=== PATIENT | female | born 1980 | race Caucasian/White ===

== ENCOUNTER 2019-05-18 10:26 | Emergency (ER) | payer OTHER, SELFPAY ==
[2019-05-18 10:32] VITALS: BP 162/72; PULSE 90; RESP 14; TEMP 36.6; O2SAT 96
--- NOTE | 2019-05-18 10:48 | W.ED.GENAD ---
Discharge Plan Disposition Patient Disposition: HOME Condition: Stable Discharge Details Chief Complaint: Nk/Back Pain Clinical Impression: Back pain, thoracic Primary Care Provider: Catarino An ED Provider: Terry Longoria Home Meds and New Rx's Prescriptions: New methocarbamol 500 mg tablet 500 mg PO Q6H PRN (Reason: Back pain or spasm) Qty: 14 RF: 0 prednisone 20 mg tablet 40 mg PO DAILY 5 Days Qty: 10 RF: 0 Continued Symbicort 80-4.5 mcg/actuation HFA aerosol inhaler 2 puff Inhalation BID 30 Days Qty: 1 RF: 11 albuterol sulfate [ProAir HFA] 90 mcg/actuation HFA aerosol inhaler 2 puff Inhalation Q4H PRN 30 Days Qty: 1 RF: 11 biotin 1 MG capsule 1 mg PO DAILY RF: 0 cetirizine [Zyrtec] 10 MG tablet 10 mg PO PRN RF: 0 Discharge Instructions Instructions: Back Pain (ED) Additional Instructions: May use ibuprofen 800 mg every 8 hours, next dose this evening. May continue Lidoderm patch, applying for 12 hours and then remove for 12. Please take prednisone as prescribed. May use methocarbamol as needed, for muscular pain and spasm. May apply ice and/or heat to area to reduce discomfort. Please follow-up with physical therapy as prescribed. Return to the emerge part for worsening pain, incontinence, development of lower extremity weakness or numbness, or any other acute concern. Stand Alone Forms: Physical Therapy Referral Medical Decision Making 38-year-old female bent over this morning to pick stepping off a floor and felt a pop in her back followed by slow tightening. She did not lose bowel or bladder continence, there is no radiation of the pain, it is improved with rest and exacerbated by movement. Her vital signs are reassuring, her exam is consistent with paraspinous muscular spasm. Discussed with her that we cannot rule out underlying disc bulge. We will treat with Lidoderm patch, NSAIDs, course of prednisone for its anti-inflammatory properties, PRN use of methocarbamol and referral to physical therapy. She understands plan of outpatient care as well as indications for return to the ED for worsening, weakness or numbness, incontinence. HPI General Mode of arrival: ambulatory. Date/Time Provider Initiated Documentation: 05/18/19 10:34. Limitations to Documentation: no limitations. Information obtained by: patient. History of Present Illness 38 year old F presents to the emergency department with the chief complaint of Thoracic back strain, described as moderate and similar to prior episodes, Quality is described as dull and constant, and is localized to the back. Patient reports no radiation. Patient started experiencing this hour(s) and it has been constant. Rest improves symptom(s), Movement worsens symptoms . Patient notes no other symptoms. and other (No numbness or tingling, no change to bowel or bladder habits, ambulatory); denies weakness. Patient did receive the following treatments prior to arrival, none Related Data Home Medications Medication Instructions Recorded Confirmed cetirizine [Zyrtec] 10 mg PO PRN 11/04/13 05/18/19 biotin 1 mg PO DAILY 01/12/16 05/18/19 albuterol sulfate 90 mcg/actuation 2 puff INHALATION Q4H PRN 30 Days 01/30/19 05/18/19 aerosol inhaler #1 inhaler budesonide-formoterol HFA 80 2 puff INHALATION BID 30 Days #1 01/30/19 05/18/19 mcg-4.5 mcg/actuation aerosol inhaler inhaler methocarbamol 500 mg PO Q6H PRN #14 tab 05/18/19 prednisone 40 mg PO DAILY 5 Days #10 tab 05/18/19 Previous Rx's Medication Instructions Recorded albuterol sulfate 90 mcg/actuation 2 puff INHALATION Q4H PRN 30 Days 01/30/19 aerosol inhaler #1 inhaler budesonide-formoterol HFA 80 2 puff INHALATION BID 30 Days #1 01/30/19 mcg-4.5 mcg/actuation aerosol inhaler inhaler methocarbamol 500 mg PO Q6H PRN #14 tab 05/18/19 prednisone 40 mg PO DAILY 5 Days #10 tab 05/18/19 Allergies Allergy/AdvReac Type Severity Reaction Status Date / Time amoxicillin trihydrate Allergy Mild hives Unverified 05/18/19 10:37 [From Augmentin] potassium clavulanate Allergy Mild hives Unverified 05/18/19 10:37 [From Augmentin] General Stated Complaint: Nk/Back Pain JASMINE: 4 Review of Systems Narrative: No incontinence. No anesthesia. 6 systems reviewed and otherwise negative [facility] Surgical History Ligation of fallopian tube Family History Mother No problems noted. Father No problems noted. Sister No problems noted. Brother Mental disorder Depression Grandfather Personal history of malignant neoplasm Prostate Grandfather No problems noted. Grandmother Personal history of malignant neoplasm Breast Grandmother No problems noted. Daughter No problems noted. Daughter No problems noted. Maternal Aunt Personal history of malignant neoplasm Breast Social History Smoking/Tobacco Use Status: Current every day Drug use: Never Do you feel safe in your relationship?: Yes Exam Narrative Exam Narrative: GEN: awake, alert, oriented 3. Pleasant, well groomed, interactive. HEAD: Normocephalic, atraumatic ENT: Mucous membranes moist, oropharynx unremarkable, External ear exam unremarkable EYES: PERRL, EOMI NECK: Full ROM, no BATSHEVA, no menigismus CHEST/RESP: Nontender, clear to auscultation bilateral, no wheeze/rhonchi/rales CARDIOVASCULAR: RRR, no murmur, rub lj. 2+ Rad pulse bilateral Back: Lower thoracic tenderness and muscular spasm in the paraspinous muscles bilaterally. No midline point tenderness. ABDOMEN: Soft, nontender, no mass. +Bowel sounds EXT: Full ROM, no edema, no rash. Motor 5 out of 5 bilaterally. Reflexes 1+ at the patella and ankle. Sensation intact including saddle distribution. Neuro: Grossly normal neurologic exam, conversant, interactive. Psych: Speech fluent, thoughts congruent, affect normal Course Vital Signs Vital signs: Vital Signs Temperature 36.6 C 05/18/19 10:32 Pulse 90 05/18/19 10:32 Respiratory Rate 14 05/18/19 10:32 Blood Pressure 162/72 H 05/18/19 10:32 Pulse Oximetry 96 05/18/19 10:32 Temperature 36.6 C 05/18/19 10:32 Temperature Source Skin 05/18/19 10:32 Pulse 90 05/18/19 10:32 Respiratory Rate 14 05/18/19 10:32 Respiratory Effort Short of Breath 05/18/19 10:41 Blood Pressure 162/72 H 05/18/19 10:32 Blood Pressure Position Sitting 05/18/19 10:32 Pulse Oximetry 96 05/18/19 10:32 Oxygen Delivery Method Room Air 05/18/19 10:32 Oxygen Flow Rate 0 05/18/19 10:32 Pain Level 6 05/18/19 10:32
[2019-05-18] MEDS: Lidocaine 5% Patch 1 PATCH TP (10:52)
[2019-05-18] MEDS: Ibuprofen 800 MG TAB PO (10:53)
== END 2019-05-18 11:03 | disposition home or self-care (01) ==
PROVIDERS: Emergency Provider Emergency Medicine; PCP Family Medicine
DX: M54.6 Pain in thoracic spine (principal); M62.830 Muscle spasm of back; X50.9XXA Other and unspecified overexertion or strenuous movements or postures, initial encounter
CPT/HCPCS: 99283

== ENCOUNTER 2019-06-05 15:57 | Emergency (ER) | payer OTHER, SELFPAY ==
[2019-06-05] VITALS (11 sets, daily range): BP systolic 136–184; BP diastolic 89–122; PULSE 60–108; RESP 8–25; TEMP 36.6; O2SAT 94–97
--- NOTE | 2019-06-05 16:04 | W.ED.GENAD ---
Discharge Plan Disposition Patient Disposition: HOME Condition: Fair Discharge Details Chief Complaint: RespSymp Clinical Impression: Viral illness Primary Care Provider: Catarino An ED Provider: Ella Crane Home Meds and New Rx's Prescriptions: New oseltamivir [Tamiflu] 75 mg capsule 75 mg PO BID Qty: 8 RF: 0 benzonatate [Tessalon Perles] 100 mg capsule 100 mg PO TID PRN (Reason: cough) Qty: 14 RF: 0 ipratropium-albuterol 0.5 mg-3 mg(2.5 mg base)/3 mL solution for nebulization 3 ml IH Q4H PRN (Reason: shortness of breath or wheezing) Qty: 15 RF: 0 Continued Symbicort 80-4.5 mcg/actuation HFA aerosol inhaler 2 puff Inhalation BID 30 Days Qty: 1 RF: 11 albuterol sulfate [ProAir HFA] 90 mcg/actuation HFA aerosol inhaler 2 puff Inhalation Q4H PRN 30 Days Qty: 1 RF: 11 biotin 1 MG capsule 1 mg PO DAILY RF: 0 cetirizine [Zyrtec] 10 MG tablet 10 mg PO PRN RF: 0 methocarbamol 500 mg tablet 500 mg PO Q6H PRN (Reason: Back pain or spasm) Qty: 14 RF: 0 Discharge Instructions Instructions: Benzonatate (By mouth), Oseltamivir (By mouth), Viral Syndrome (ED) Additional Instructions: Your rapid flu testing was negative today. However, I remain very concerned that you have influenza. More formal testing consent state. We will contact you if this is positive. Please encourage hydration. You may use Tylenol and/or ibuprofen as needed for discomfort. Please take the Tamiflu as prescribed. You may use the Tessalon Perles as prescribed to help with cough. Try sitting in a more upright position when sleeping. May continue with your medications as prescribed. To help with the shortness of breath and cough, may use the nebulizer as prescribed to help with shortness of breath. If you develop increased difficulty breathing, shortness of breath, inability stay hydrated or new/worsening symptoms please seek care urgently once again. Otherwise, I would like for you to follow-up with your primary care in 2 days for reevaluation. Referrals: Catarino An [Primary Care Provider] - Discharge Data Discharge Date/Time-TO BE ENTERED AT DEPARTURE: 06/05/19 22:00 Medical Decision Making <ADIN Mary - Last Filed: 06/09/19 15:49> Patient 38-year-old female presenting today with chief complaint of shortness of breath, cough, body aches and congestion. She reports this came on suddenly yesterday. Pleuritic pain with cough. Patient has history of asthma, depression, GERD. She reports she is status post tubal ligation. No recent travel. States she is constant shortness of breath but this is made worse with coughing. Denies any GI upset. No change in urinary habits. On exam, patient appears uncomfortable. She is tachypneic and tachycardic at time of exam. Initially, patient was noted to be hypertensive at 184/122. Will ask nursing staff to recheck this. Lungs are clear. Rapid onset of her symptoms, I am concerned she may have influenza. We will perform a rapid flu testing and obtain chest x-ray given patient shortness of breath. Will give nebulizer help with symptomatic management. FINDINGS: Lungs: Unremarkable. No consolidation. Pleural space: Unremarkable. No pleural effusion. No pneumothorax. Heart/Mediastinum: Unremarkable. No cardiomegaly. Bones/joints: Unremarkable. IMPRESSION: No acute findings Rapid flu negative. Despite this, I still remain concerned for influenza given patients history and exam. Reexamined the patient and discussed the results. She does feel improved after a nebulizer. However, patient remains tachycardic in the 120s. Her oxygen to maintain at 97%. She is notably tachypneic and remains hypertensive although this is improved to 160/100. Feel that hydration, laboratory evaluation and treatment for presumed influenza is appropriate. Will order secondary influenza testing. Labs reviewed. Significant for elevated d-dimer 569. I discussed this with the patient. Given her tachycardia, tachypnea and pleuritic pain, I feel that CT to rule out pulmonary embolism is appropriate. Labs otherwise without significant acute abnormality. Her AST and ALT were noted to be mildly elevated and discussed this with the patient, advised that she follow-up with primary care regarding this. FINDINGS: Pulmonary arteries: Normal. No pulmonary emboli. Aorta: Unremarkable. No aortic aneurysm. No aortic dissection. Lungs: Unremarkable. No consolidation. No masses. Pleural space: Unremarkable. No pneumothorax. No pleural effusion. Heart: Unremarkable. No cardiomegaly. No pericardial effusion. Liver: There is fatty infiltration of the liver without suspicious focal abnormality. Some areas of heterogeneity seen with features suggesting focal fatty sparing. Lymph nodes: Unremarkable. No enlarged lymph nodes. Bones/joints: Unremarkable. No acute fracture. Soft tissues: Unremarkable. IMPRESSION: 1. No evidence of pulmonary arterial embolism. Normal appearance of thoracic aorta. 2. No pericardial effusion. 3. No acute lung infiltrates or edema. No pleural effusions. 4. Fatty liver infiltration of a severe nature. Discussed these findings with the patient. Again, her history and exam is most consistent with influenza despite her negative rapid. A send out influenza testing has been ordered. Plan to begin the patient on Tamiflu. Also discharged home with Kaley Koch. Encourage hydration. We discussed methods to help with symptomatic management. She is feeling improved at the time of discharge. Advise close follow-up with primary care. Return precautions discussed. We will contact her with any positive results. Patient was given masks and instructions on hand hygiene particular given her sick at home. All of her questions and concerns were addressed and she is in agreement this plan. <Brenden Garcia DO - Last Filed: 06/05/19 19:22> EKG 17: 52 Rate 107, intervals normal, sinus tachycardia, RSR in V1, no evidence today, no evidence of complete block. No significant ST elevations or depressions, there is an inverted T wave in lead III. HPI <ADIN Mary - Last Filed: 06/09/19 15:49> General Mode of arrival: ambulatory. Date/Time Provider Initiated Documentation: 06/05/19 16:04. Limitations to Documentation: no limitations. Information obtained by: patient, family and RN notes reviewed. HPI Narrative: Patient is a 38-year-old female presenting today with chief complaint of cough, body aches, nasal congestion. She reports this began yesterday with a sudden onset. Denies any recent travel. 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 Reports fevers and chills. Generalized body aches. No known sick contacts but patient reports that her is chronically ill and she is concerned about transmitting any illness. She rates her general body aches a 7 out of 10. Is not taking anything for her discomfort. Related Data Home Medications Medication Instructions Recorded Confirmed cetirizine [Zyrtec] 10 mg PO PRN 11/04/13 06/07/19 biotin 1 mg PO DAILY 01/12/16 06/07/19 albuterol sulfate 90 mcg/actuation 2 puff INHALATION Q4H PRN 30 Days 01/30/19 06/07/19 aerosol inhaler #1 inhaler budesonide-formoterol HFA 80 2 puff INHALATION BID 30 Days #1 01/30/19 06/07/19 mcg-4.5 mcg/actuation aerosol inhaler inhaler methocarbamol 500 mg PO Q6H PRN #14 tab 05/18/19 06/07/19 benzonatate [Tessalon Perles] 100 mg PO TID PRN #14 cap 06/05/19 06/07/19 ipratropium-albuterol 3 ml IH Q4H PRN #15 ml 06/05/19 06/07/19 oseltamivir [Tamiflu] 75 mg PO BID #8 cap 06/05/19 06/07/19 Previous Rx's Medication Instructions Recorded albuterol sulfate 90 mcg/actuation 2 puff INHALATION Q4H PRN 30 Days 01/30/19 aerosol inhaler #1 inhaler budesonide-formoterol HFA 80 2 puff INHALATION BID 30 Days #1 01/30/19 mcg-4.5 mcg/actuation aerosol inhaler inhaler methocarbamol 500 mg PO Q6H PRN #14 tab 05/18/19 benzonatate [Tessalon Perles] 100 mg PO TID PRN #14 cap 06/05/19 ipratropium-albuterol 3 ml IH Q4H PRN #15 ml 06/05/19 oseltamivir [Tamiflu] 75 mg PO BID #8 cap 06/05/19 Allergies Allergy/AdvReac Type Severity Reaction Status Date / Time amoxicillin trihydrate Allergy Mild hives Unverified 06/07/19 11:34 [From Augmentin] potassium clavulanate Allergy Mild hives Unverified 06/07/19 11:34 [From Augmentin] General Stated Complaint: RespSymp JASMINE: 3 Review of Systems <ADIN Mary - Last Filed: 06/09/19 15:49> Constitutional Constitutional: Reports as per HPI, Reports chills, Reports fatigue, Reports fever(s), Denies headache(s), Reports malaise and Reports poor appetite Eyes Eyes: Reports as per HPI, Denies eye discharge and Denies irritation ENT Ears, Nose, Mouth, and Throat: Reports as per HPI and Denies headache(s) Cardiovascular Cardiovascular: Reports as per HPI, Denies chest pain and Denies dyspnea Respiratory Respiratory: Reports as per HPI, Reports chest congestion, Reports cough, Denies hemoptysis, Denies excessive phlegm production, Denies pain on inspiration, Reports pain with cough, Denies dyspnea and Denies wheezing Gastrointestinal Gastrointestinal: Reports as per HPI, Denies abdominal pain, Denies change in bowel habits, Denies nausea and Denies vomiting Musculoskeletal Musculoskeletal: Denies abnormal gait, Reports myalgias and Reports arthralgias Integumentary/Breasts Skin/Breast: Reports as per HPI and Denies rash Neurologic Neurologic: Reports as per HPI, Denies abnormal gait and Denies headache(s) Endocrine Endocrine: Reports fatigue Allergic/Immunologic Allergic/Immunologic: Denies wheezing PFSH <ADIN Mary - Last Filed: 06/09/19 15:49> Surgical History Ligation of fallopian tube Social History Smoking/Tobacco Use Status: Current every day Tobacco Type: cigarettes Alcohol Intake: current Alcohol Intake frequency: a few times a month Drug use: Never Substance use type: does not use Do you feel safe at home: Yes Do you feel safe in your relationship?: Yes Exam <ADIN Mary - Last Filed: 06/09/19 15:49> Const General: cooperative, not healthy appearing (appears fatigued and uncomfortable), no acute distress, well developed and well groomed Nutritional Appearance: well nourished and obese Orientation: alert and awake [facility] Head: normal to inspection, normocephalic and atraumatic Ears: hearing grossly normal bilaterally, external ears normal and TM's normal bilaterally General nose exam: external nose normal and nares normal Face and sinus: normal facial exam, sinuses nontender and face symmetric Mouth: oral mucosae normal, lip normal, tongue normal, oropharynx normal and moist mucous membranes Teeth and gingiva: dentition normal Throat: posterior oropharynx normal, tonsils normal and uvula midline Eyes General: appearance normal, both eyes and all related structures Neck Neck: normal visual inspection, full ROM, no lymphadenopathy and no meningeal signs Resp Effort & Inspection: normal respiratory effort, able to speak in complete sentences and no respiratory distress Auscultation: clear to auscultation bilaterally, no rales, no rhonchi and no wheezes Cardio Rate: regular rate Rhythm: regular rhythm Heart Sounds: S1 normal and S2 normal GI Inspection: normal to inspection, non-distended and obesity Palpation: soft, no hepatosplenomegaly, no guarding, not rigid and nontender Skin General skin exam: no rashes or lesions noted Neuro General: alert and awake Cognition: normal cognition Speech: speech normal Gait: normal gait Extrem General: normal to inspection, normal capillary refill, no pedal edema, no calf tenderness and normal gait Psych Appearance: grossly normal and well kempt Mental Status: mental status grossly normal Speech and Movement: speech and movement normal Course <ADIN Mary - Last Filed: 06/09/19 15:49> Vital Signs Vital signs: Vital Signs Temperature 36.6 C 06/05/19 16:01 Pulse 60 06/05/19 16:01 Respiratory Rate 20 06/05/19 16:01 Pulse Oximetry 95 06/05/19 16:01 Temperature 36.6 C 06/05/19 16:01 Temperature Source Temporal Artery Scan 06/05/19 16:01 Pulse 60 06/05/19 16:01 Respiratory Rate 20 06/05/19 16:01 Blood Pressure Position Sitting 06/05/19 16:01 Pulse Oximetry 95 06/05/19 16:01 Oxygen Delivery Method Room Air 06/05/19 16:01 Oxygen Flow Rate 0 06/05/19 16:01 Pain Level 7 06/05/19 16:01
[2019-06-05] MEDS: Albuterol/Ipratropium 3 ML UPD VIAL (16:15)
--- NOTE | 2019-06-05 16:33 | DI.RAD_ITS ---
EXAM: XR CHEST 2V PA LATERAL INDICATION: cough. COMPARISON: ABD FLAT UPRIGHT PA CHEST from 11/04/2013 TECHNIQUE: 2D digital imaging was performed. FINDINGS: The heart size is within normal limits. The aorta is mildly tortuous. Lungs appear clear. No infil trate or effusion is seen. IMPRESSION: No acute abnormality.
--- NOTE | 2019-06-05 16:41 | DI.VRAD_ITS ---
PROCEDURE INFORMATION: Exam: XR Chest, 2 Views Exam date and time: 06/05/2019 4:35 PM Age: 38 years old Clinical indication: Patient HX: Nonproductive cough, worsening 1.5 days TECHNIQUE: Imaging protocol: XR of the chest Views: 2 views. COMPARISON: CR ABD FLAT UPRIGHT PA CHEST 11/04/2013 7:58 PM FINDINGS: Lungs: Unremarkable. No consolidation. Pleural space: Unremarkable. No pleural effusion. No pneumothorax. Heart/Mediastinum: Unremarkable. No cardiomegaly. Bones/joints: Unremarkable. IMPRESSION: No acute findings. Dictated and Authenticated by: Eileen Benavidez MD. Ordering:CARLOS Jaramillo MD
[2019-06-05] MEDS: Acetaminophen 500 MG TAB 1000 MG PO (17:36)
[2019-06-05] MEDS: Normal Saline 1,000 ML 1000 ML IV (17:37)
[2019-06-05 17:40] LABS: Abs Immature Grans 0.05 k/cumm (0.0-0.09); Absolute Basophil Count 0.03 k/cumm (0.0-0.2); Absolute Lymphocyte Count 0.63 k/cumm (1.2-3.4); Absolute Monocyte Count 0.39 k/cumm (0.11-0.7); Absolute Neutrophil Count 5.74 k/cumm (1.2-6.7); Basophils % 0.4; HCT 42.9 % (36.0-46.0); HGB 14.7 g/dL (12.0-15.5); Immature Grans % 0.7; Lymphocytes % 9.2; Mean Corp. HGB Concentration 34.3 g/dL (32.0-36.0); Mean Corpuscular Hemoglobin 32.5 pg (27.0-33.0); Mean Corpuscular Volume 94.7 fL (80-95); Mean Platelet Volume 10.3 fL (8.0-11.0); Monocytes % 5.7; Platelet Count 163 x1000/uL (130-400); RBC 4.53 m/cumm (4.00-5.20); RBC Distribution Width 12.6 % (11.7-14.6); White Blood Cell Count 6.84 k/cumm (4.4-10.8)
[2019-06-05 18:07] LABS: ALT 74 U/L (14-59); AST 67 U/L (15-37); Albumin 3.6 g/dL (3.4-5.0); Alkaline Phosphatase 78 U/L (46-116); Anion Gap 6.3 mmol/L (3-11); BUN 11 mg/dL (7-18); Bilirubin, Total 0.4 mg/dL (0.2-1.0); CO2 28.7 mmol/L (21.0-32.0); CREATININE 0.77 mg/dL (0.55-1.02); Chloride 105 mmol/L (98-107); Glucose 116 mg/dL (74-106); Potassium 3.9 mmol/L (3.5-5.1); Sodium 140 mmol/L (136-145); Total Protein 7.6 g/dL (6.4-8.2)
[2019-06-05 18:10] LABS: D-Dimer 569 ng/mlFEU (<500)
[2019-06-05 18:16] LABS: Troponin I < 0.05 ng/Ml (<0.06)
--- NOTE | 2019-06-05 19:04 | DI.CT_ITS ---
EXAM: CT CHEST PE CTA CLINICAL HISTORY: elevated d-dimer, SOB, tachy, COUGH, SOB TECHNIQUE: Post IV contrast, 100 cc's of Omnipaque 350 according to the pulmonary embolism protocol. Axial CT angiography was performed with multi-slice acquisition and multi-planar and/or 3D reconstruc tions. COMPARISON: No exams were available for comparison FINDINGS: There is no evidence of pulmonary emboli or aortic dissection. No pleural or pericardial effusions are seen. There is no evidence of infiltrates. No pneumothorax, rib or spine fracture is seen. The liver is enlarged and shows fatty infiltration. IMPRESSION: No acute abnormality.
[2019-06-05] MEDS: Omnipaque 350 MG/ML 100 ML BTL IJ (19:08)
--- NOTE | 2019-06-05 19:27 | DI.VRAD_ITS ---
PROCEDURE INFORMATION: Exam: CT Angiography Chest With Contrast Exam date and time: 06/05/2019 7:02 PM Age: 38 years old Clinical indication: Cough and shortness of breath; Patient HX: SOB, tachy, elevated d dimer TECHNIQUE: Imaging protocol: Computed tomographic angiography of the chest with intravenous contrast. 3D rendering: MIP and/or 3D reconstructed images were created by the technologist. Radiation optimization: All CT scans at this facility use at least one of these dose optimization techniques: automated exposure control; mA and/or kV adjustment per patient size (includes targeted exams where dose is matched to clinical indication); or iterative reconstruction. Contrast material: OMNIPAQUE 350; Contrast volume: 100 ml; Contrast route: IV RAC; COMPARISON: CR XR CHEST 2V PA LATERAL 06/05/2019 4:33 PM FINDINGS: Pulmonary arteries: Normal. No pulmonary emboli. Aorta: Unremarkable. No aortic aneurysm. No aortic dissection. Lungs: Unremarkable. No consolidation. No masses. Pleural space: Unremarkable. No pneumothorax. No pleural effusion. Heart: Unremarkable. No cardiomegaly. No pericardial effusion. Liver: There is fatty infiltration of the liver without suspicious focal abnormality. Some areas of heterogeneity seen with features suggesting focal fatty sparing. Lymph nodes: Unremarkable. No enlarged lymph nodes. Bones/joints: Unremarkable. No acute fracture. Soft tissues: Unremarkable. IMPRESSION: 1. No evidence of pulmonary arterial embolism. Normal appearance of thoracic aorta. 2. No pericardial effusion. 3. No acute lung infiltrates or edema. No pleural effusions. 4. Fatty liver infiltration of a severe nature. Dictated and Authenticated by: Ata Arnold MD. Ordering:CARLOS Jaramillo MD
[2019-06-05] MEDS: Oseltamivir 75 MG CAP 150 MG PO (19:44)
[2019-06-05] MEDS: Benzonatate 100 MG CAP 300 MG PO (19:44)
[2019-06-05] MEDS: Albuterol/Ipratropium 3 ML UPD VIAL UPD (19:54)
[2019-06-07 10:38] LABS: Influenza B RNA Result Negative (Negative); RSV RNA Result Negative (Negative)
[2019-06-07 11:50] LABS: Influenza A RNA Result Positive (Negative)
== END 2019-06-05 22:00 | disposition home or self-care (01) ==
PROVIDERS: Emergency Provider Physician Assistant; PCP Family Medicine
DX: J10.1 Influenza due to other identified influenza virus with other respiratory manifestations (principal); R06.02 Shortness of breath; R05 Cough; R00.0 Tachycardia, unspecified; R03.0 Elevated blood-pressure reading, without diagnosis of hypertension
CPT/HCPCS: 36415; 71275; 80053; 87449; 87631; 93005; 94640; 96360; 99285; 71046; 84484; 85025; 85379; 93010; J3490; J7620

== ENCOUNTER 2019-12-17 01:47 | Outpatient (CLI) | payer OTHER, SELFPAY ==
--- NOTE | 2019-12-17 09:00 | DI.MAMMO_ITS ---
EXAM: MG MAMMO SCREENING CLINICAL HISTORY: screening, Z12.39 TECHNIQUE: Bilateral full field digital CC and MLO mammographic images were obtained with 3D tomosyn thesis and utilizing computer aided detection (CAD). COMPARISON: No priors for comparison. FINDINGS: Masses/Architectural Distortion: There is a well-circumscribed nodule in the 12 o'clock position of t he left breast. There is a question of a lucent notch anteriorly and this may reflect a intraparench ymal lymph node. Spot compression view and ultrasound requested for further evaluation. Microcalcifications: No suspicious pleomorphic-type are seen. Skin Thickening/Nipple Retraction: None. IMPRESSION: 1. Well-circumscribed nodule at the 12 o'clock position of the left breast. 2. Spot compression view and ultrasound are requested for further evaluation. BI-RADS Category 0 - Assessment Incomplete: Need additional imaging evaluation Breast Density - Category B - Scattered areas of fibroglandular density A negative radiographic report should not delay biopsy if a dominant or clinically suspicious mass is present. Up to ten percent of cancers are not identified on mammography. A negative report may reinforce clinical impression. Adenosis and dense breasts may obscure an underlying neoplasm. False positive reports average 6 to 10%. Patient will receive a letter notifying them of these results.
== END 2019-12-17 02:07 ==
PROVIDERS: PCP Nurse Practitioner; Visit Provider Nurse Practitioner
DX: Z12.31 Encounter for screening mammogram for malignant neoplasm of breast (principal); R92.8 Other abnormal and inconclusive findings on diagnostic imaging of breast
CPT/HCPCS: 77063; 77067

== ENCOUNTER 2019-12-19 02:20 | Outpatient (CLI) | payer OTHER, SELFPAY ==
--- NOTE | 2019-12-19 | DI.US_ITS ---
EXAM: MG MAMMO SCREEN CALL BACK UNI CLINICAL HISTORY: WELL CIRCUMSCRIBED NODULE IN 12 O'CLOCK POSITION LT BREAST. TECHNIQUE: Craniocaudal and mediolateral oblique Full Field Digital Mammography views of the left br east with Computer Aided Diagnosis followed by Tomosynthesis and left breast ultrasound. COMPARISON: Comparison with priors. FINDINGS: Mammography/Tomosynthesis: Masses/Architectural Distortion: Well-circumscribed nodule in the left breast appears unchanged. No associated microcalcifications or architectural distortion is noted. Microcalcifictions: No suspicious pleomorphic-type are seen. Skin Thickening/Nipple Retraction: None. Left breast US: Echotexture: Normal appearance of the glandular tissue. Shadowing: No suspicious foci. Cyst: None. Solid lesions: Well-circumscribed radially oriented hypoechoic avascular lesion at the 11 o'clock pos ition of the left breast 11 cm from the nipple. This corresponds to the mammographic abnormality. T his may represent an intraparenchymal lymph node or small fibroadenoma. Ductal dilation: None. IMPRESSION: 1. No evidence of malignancy is noted. 2. Six-month follow-up left mammogram recommended for re-evaluation. 3. The findings were discussed with the patient on the date of the examination. BI-RADS Category 3 - 6 month - Probably Benign Finding: Recommend follow-up mammography in 6 months Breast Density - Category B - Scattered areas of fibroglandular density A negative radiographic report should not delay biopsy if a dominant or clinically suspicious mass is present. Up to ten percent of cancers are not identified on mammography. A negative report may reinforce clinical impression. Adenosis and dense breasts may obscure an underlying neoplasm. False positive reports average 6 to 10%. Patient will receive a letter notifying them of these results.
== END 2019-12-19 02:40 ==
PROVIDERS: PCP Nurse Practitioner; Visit Provider Nurse Practitioner
DX: Z12.31 Encounter for screening mammogram for malignant neoplasm of breast (principal); R92.8 Other abnormal and inconclusive findings on diagnostic imaging of breast; N63.22 Unspecified lump in the left breast, upper inner quadrant
CPT/HCPCS: 76642; 77063; 77067

== ENCOUNTER 2020-09-09 13:11 | Outpatient (REF) | payer OTHER, SELFPAY ==
[2020-09-09 13:57] LABS: ALT 85 U/L (14-59); AST 70 U/L (15-37); Albumin 3.4 g/dL (3.4-5.0); Alkaline Phosphatase 87 U/L (46-116); BUN 9 mg/dL (7-18); Bilirubin, Total 0.4 mg/dL (0.2-1.0); CREATININE 0.8 mg/dL (0.55-1.02); Calcium 8.6 mg/dL (8.5-10.1); Calculated LDL 154 mg/dL (<100); Chloride 100 mmol/L (98-107); Cholesterol 236 mg/dL (<200); Glucose 168 mg/dL (74-106); HDL Cholesterol 36 mg/dL (40-60); Hemoglobin A1C 6.4 % (<5.7); Potassium 3.3 mmol/L (3.5-5.1); Sodium 141 mmol/L (136-145); Total Protein 7.1 g/dL (6.4-8.2); Triglyceride 232 mg/dL (<150)
== END 2020-09-09 13:12 | disposition home or self-care (01) ==
LOC: LBN 13:11
PROVIDERS: PCP Nurse Practitioner; Visit Provider Nurse Practitioner
DX: K76.0 Fatty (change of) liver, not elsewhere classified (principal); Z13.1 Encounter for screening for diabetes mellitus; Z13.6 Encounter for screening for cardiovascular disorders
CPT/HCPCS: 80053; 80061; 83036

== ENCOUNTER 2020-12-03 16:13 | Outpatient (REF) | payer OTHER, SELFPAY ==
[2020-12-03 18:54] LABS: Abs Immature Grans 0.02 10^3/uL (0.0-0.06); Absolute Basophil Count 0.08 10^3/uL (0.0-0.2); Absolute Eosinophil Count 0.45 10^3/uL (0.0-0.7); Absolute Lymphocyte Count 2.21 10^3/uL (1.2-3.4); Absolute Neutrophil Count 6.35 10^3/uL (1.2-6.7); Basophils % 0.8; Eosinophils % 4.7; HCT 41.6 % (36.0-46.0); HGB 13.6 g/dL (11.2-15.7); Immature Grans % 0.2; MCH 30.7 pg (27.0-33.0); MCHC 32.7 % (32.0-36.0); MCV 93.9 fL (80-95); Monocytes % 5.2; Neutrophils % 66.1; Nucleated RBC 0 %; Platelet Count 192 10^3/uL (130-400); RBC 4.43 10^6/uL (3.93-5.22); RDW 12.8 % (11.7-14.6); RDW-SD 44.2 fL; WBC 9.61 10^3/uL (4.4-10.8)
[2020-12-03 19:27] LABS: ALT 64 U/L (14-59); AST 53 U/L (15-37); Albumin 3.4 g/dL (3.4-5.0); Alkaline Phosphatase 80 U/L (46-116); Anion Gap 6.9 mmol/L (3-11); BUN 12 mg/dL (7-18); Bilirubin, Total 0.7 mg/dL (0.2-1.0); CO2 31.1 mmol/L (21.0-32.0); CREATININE 1.1 mg/dL (0.55-1.02); Calcium 8.9 mg/dL (8.5-10.1); Chloride 103 mmol/L (98-107); Estimated GFR 54.47 (mL/min/1.73m2); Glucose 124 mg/dL (74-106); Potassium 3.9 mmol/L (3.5-5.1); Sodium 141 mmol/L (136-145); Total Protein 6.9 g/dL (6.4-8.2)
[2020-12-03 19:36] LABS: Amylase 45 U/L (25-115); Lipase 95 U/L (73-393)
== END 2020-12-03 16:14 | disposition home or self-care (01) ==
LOC: NCHCN 16:13
PROVIDERS: PCP Nurse Practitioner; Visit Provider Nurse Practitioner Family
DX: R10.9 Unspecified abdominal pain (principal); N39.0 Urinary tract infection, site not specified
CPT/HCPCS: 80053; 83690; 82150; 85025; 87086

== ENCOUNTER 2021-02-28 18:57 | Outpatient (REF) | payer OTHER, SELFPAY ==
[2021-03-01 16:23] LABS: COVID-19 RT-PCR UVMMC Result Negative (Negative)
== END 2021-03-01 18:58 | disposition home or self-care (01) ==
LOC: LBN 18:57
PROVIDERS: PCP Nurse Practitioner; Visit Provider Physician Assistant Medical
DX: Z20.822 Contact with and (suspected) exposure to COVID-19 (principal); J06.9 Acute upper respiratory infection, unspecified
CPT/HCPCS: U0003

== ENCOUNTER 2021-05-08 | Emergency (ER) | payer OTHER, SELFPAY ==
[2021-05-08] VITALS (17 sets, daily range): BP systolic 88–116; BP diastolic 57–83; PULSE 86–103; RESP 19–21; TEMP 36.4–36.9; O2SAT 93–98
--- NOTE | 2021-05-08 00:15 | ED.GENADUL_ITS ---
Discharge Plan Disposition Patient Disposition: HOME Condition: Stable Discharge Details Clinical Impression: Angioedema Primary Care Provider: Marga Devi ED Provider: Billy Urban Home Meds and New Rx's Prescriptions: New prednisone 20 mg tablet 60 mg PO DAILY 4 Days Qty: 12 RF: 0 Continued albuterol sulfate [ProAir HFA] 90 mcg/actuation HFA aerosol inhaler 2 puff Inhalation Q4H PRN 30 Days Qty: 1 RF: 11 omeprazole 20 mg tablet,delayed release (DR/EC) 20 mg PO DAILY RF: 0 rosuvastatin 5 mg tablet 5 mg PO DAILY Qty: 90 RF: 3 budesonide-formoterol [Symbicort] 80-4.5 mcg/actuation HFA aerosol inhaler 2 puff Inhalation BID Qty: 10.2 RF: 11 chlorthalidone 25 mg tablet 25 mg PO QAM Qty: 90 RF: 3 cetirizine [Zyrtec] 10 MG tablet 10 mg PO PRN RF: 0 Discontinued lisinopril 20 mg tablet 20 mg PO DAILY Qty: 90 RF: 3 Discharge Instructions Instructions: Angioedema (ED) Additional Instructions: stop taking your lisinopril and follow up with your primary care provider within a week to discuss starting a different medication if you feel more ill, have difficulty breathing or worsening swelling return to the emergency department Medical Decision Making 40 yo female with hx of gerd, htn, hld, who comes in with ems with tongue swelling. She states around 11pm tonight she noticed her tongue felt weird and then noticed it was swelling so called ems who gave her benadryl en route. She denies rash, dyspnea, or gi symptoms on my exam. No new medications, is on lisinopril. Her tongue is visibly swollen and I am unable to see the posterior pharynx. No drooling and normal lung exam, normal breath sounds and no rash. I suspect jose eduardo inhibitor induced angioedema, no findings to suggest anaphylaxis. Given the degree of tongue swelling will give solumedrol and also based on uptodate management will try txa and ffp and reassess. pt stable no new changes, no significant changes with txa awaiting ffp. Still talking and swallowing normally, normal lung sounds and no stridor after ffp her tongue returned to normal size and she now feels well, still no dyspnea or difficulty swallowing, will observe for recurrence pt ambulating without symptoms requesting d/c which I feel is reasonable given no difficulty swallowing, tongue normal size now and no dyspnea. Will start on prednisone and advised to stop lisinopril and see pcp, return precautions given Differential Diagnosis Differential Diagnosis: angioedema, jose eduardo inhibitor induced angioedema Medical Records Medical records reviewed: Yes I reviewed the patient's medical records. Lab Data Lab results reviewed: Yes I reviewed the patient's lab results. HPI General Mode of arrival: EMS . Date/Time Provider Initiated Documentation: 05/08/21 00:03 . Limitations to Documentation: no limitations . Information obtained by: patient . History of Present Illness 40 year old F presents to the emergency department with the chief complaint of tongue swelling, described as moderate, Patient started experiencing this hour(s) (1) and it has been constant. No relieving factors improve symptom(s), No exacerbating factors reported . Patient did receive the following treatments prior to arrival, none Related Data Home Medications Medication Instructions Recorded Confirmed cetirizine [Zyrtec] 10 mg PO PRN 11/04/13 05/08/21 albuterol sulfate 90 mcg/actuation 2 puff INHALATION Q4H PRN 30 Days 01/30/19 05/08/21 aerosol inhaler #1 inhaler budesonide-formoterol HFA 80 2 puff INHALATION BID #10.2 g 03/13/20 05/08/21 mcg-4.5 mcg/actuation aerosol inhaler chlorthalidone 25 mg tablet 25 mg PO QAM #90 tab 08/22/20 05/08/21 omeprazole 20 mg tablet,delayed 20 mg PO DAILY 09/09/20 05/08/21 release rosuvastatin 5 mg tablet 5 mg PO DAILY #90 tab 10/14/20 05/08/21 prednisone 60 mg PO DAILY 4 Days #12 tab 05/08/21 Previous Rx's Medication Instructions Recorded albuterol sulfate 90 mcg/actuation 2 puff INHALATION Q4H PRN 30 Days 01/30/19 aerosol inhaler #1 inhaler budesonide-formoterol HFA 80 2 puff INHALATION BID #10.2 g 03/13/20 mcg-4.5 mcg/actuation aerosol inhaler chlorthalidone 25 mg tablet 25 mg PO QAM #90 tab 08/22/20 rosuvastatin 5 mg tablet 5 mg PO DAILY #90 tab 10/14/20 prednisone 60 mg PO DAILY 4 Days #12 tab 05/08/21 Allergies Allergy/AdvReac Type Severity Reaction Status Date / Time amoxicillin trihydrate Allergy Mild hives Verified 05/08/21 00:08 [From Augmentin] potassium clavulanate Allergy Mild hives Verified 05/08/21 00:08 [From Augmentin] General Stated Complaint: Allergic JASMINE: 3 Review of Systems All systems reviewed & are unremarkable except as noted in HPI and below Constitutional Constitutional: Denies chills, Denies fever(s) and Denies weakness ENT Ears, Nose, Mouth, and Throat: Denies change in voice Cardiovascular Cardiovascular: Denies chest pain and Denies dyspnea Respiratory Respiratory: Denies cough and Denies dyspnea Gastrointestinal Gastrointestinal: Denies abdominal pain, Denies nausea and Denies vomiting Musculoskeletal Musculoskeletal: Denies joint swelling Neurologic Neurologic: Denies weakness Psychiatric Psychiatric: Denies depression PFS Active Problem List Angioedema (Acute) Hyperlipidemia (Acute) Prediabetes (Acute) Morbid obesity (Acute) HTN (hypertension) (Chronic) Asthma (Acute 08/21/12) Gastroesophageal reflux disease (Acute 08/21/12) Non-alcoholic fatty liver disease (Acute 08/21/12) Seasonal allergic rhinitis (Acute) Smoker (Acute 08/21/12) Surgical History History of bilateral ligation of fallopian tubes Ligation of fallopian tube Family History Mother No problems noted. Brother Mental disorder Depression Grandfather Personal history of malignant neoplasm Prostate Grandmother Personal history of malignant neoplasm Breast Maternal Aunt Personal history of malignant neoplasm Breast Social History Smoking/Tobacco Use Status: Current every day Tobacco Type: cigarettes Quit status: considering quitting Smoking risk assessment performed?: Yes Alcohol Intake: current Alcohol Intake frequency: a few times a month Alcohol type: hard liquor Drug use: Never Substance use type: does not use Caregiver/Support person: No Household members: children Housing: apartment Communication Needs: None Do you need help understanding health information?: Never Pets and animals: Yes Pets and animals: cat(s) Sexually active: No Do you think of yourself as: straight/heterosexual Current gender identity: female What is your relationship status?: How often do you talk on the phone with friends or family?: three or more times per week How often do you get together with friends or relatives?: never Do you belong to any clubs or organized social groups?: no Panel score (0-1 are the most socially isolated patients): 1 What type of physical activity do you participate in: none Seatbelt use: always 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 Do you feel safe at home: Yes Do you feel safe in your relationship?: Yes Exam Const General: no acute distress Orientation: alert HENMT Head: normal to inspection Ears: external ears normal General nose exam: external nose normal Mouth: moist mucous membranes Eyes General: appearance normal, both eyes and all related structures Neck Neck: normal visual inspection Resp Effort & Inspection: normal respiratory effort and able to speak in complete sentences Cardio Rate: regular rate Skin General skin exam: no rashes or lesions noted Neuro General: patient alert and patient oriented x3 Extrem General: normal to inspection Psych Mental Status: mental status grossly normal Course Vital Signs Vital signs: Vital Signs Temperature 36.6 C 05/08/21 00:03 Pulse 103 H 05/08/21 00:03 Respiratory Rate 21 05/08/21 00:03 Blood Pressure 100/81 05/08/21 00:03 Pulse Oximetry 98 05/08/21 00:03 Temperature 36.6 C 05/08/21 00:03 Temperature Source Temporal Artery Scan 05/08/21 00:03 Pulse 103 H 05/08/21 00:03 Respiratory Rate 21 05/08/21 00:03 Respiratory Effort 05/08/21 00:09 Respiratory Pattern Normal 05/08/21 00:09 Blood Pressure 100/81 05/08/21 00:03 Blood Pressure Position Sitting 05/08/21 00:03 Pulse Oximetry 98 05/08/21 00:03 Oxygen Delivery Method Room Air 05/08/21 00:03 Oxygen Flow Rate 0 05/08/21 00:03 Pain Level 0 05/08/21 00:03
[2021-05-08] MEDS: methylPREDNISolone SUCC 125 MG VIAL IVP (00:30)
[2021-05-08 00:31] LABS: Abs Immature Grans 0.03 10^3/uL (0.0-0.06); Absolute Basophil Count 0.12 10^3/uL (0.0-0.2); Absolute Eosinophil Count 0.57 10^3/uL (0.0-0.7); Absolute Lymphocyte Count 3.12 10^3/uL (1.2-3.4); Absolute Monocyte Count 0.56 10^3/uL (0.1-0.8); Eosinophils % 4.7; HCT 41.1 % (36.0-46.0); HGB 13.7 g/dL (11.2-15.7); Immature Grans % 0.2; Lymphocytes % 25.7; MCH 30.9 pg (27.0-33.0); MCHC 33.3 % (32.0-36.0); MCV 92.8 fL (80-95); MPV 10.5 fL (8.0-11.0); Monocytes % 4.6; Neutrophils % 63.8; Nucleated RBC 0 %; Platelet Count 221 10^3/uL (130-400); RBC 4.43 10^6/uL (3.93-5.22); RDW 13.5 % (11.7-14.6); RDW-SD 46.5 fL; Source Nasal/Nares; WBC 12.14 10^3/uL (4.4-10.8)
[2021-05-08 00:32] LABS: Absolute Neutrophil Count 7.75 10^3/uL (1.2-6.7)
[2021-05-08] MEDS: Normal Saline 1,000 ML 1000 ML IV (00:36)
[2021-05-08 00:45] LABS: ALT 111 U/L (14-59); AST 106 U/L (15-37); Albumin 3.4 g/dL (3.4-5.0); Alkaline Phosphatase 96 U/L (46-116); Anion Gap 9.4 mmol/L (3-11); BUN 10 mg/dL (7-18); Bilirubin, Total 0.3 mg/dL (0.2-1.0); CO2 28.6 mmol/L (21.0-32.0); CREATININE 0.8 mg/dL (0.55-1.02); Calcium 8.7 mg/dL (8.5-10.1); Chloride 102 mmol/L (98-107); Glucose 133 mg/dL (74-106); Potassium 3.1 mmol/L (3.5-5.1); Sodium 140 mmol/L (136-145)
[2021-05-08 01:26] LABS: COVID-19 PCR Negative (Negative)
--- NOTE | 2021-05-08 02:24 | NUR.NOTE ---
Nursing Note: No signs of transfusion reaction noted.
--- NOTE | 2021-05-08 02:30 | NUR.NOTE ---
Nursing Note: Patient expresses that she feels better, speech has improved since admission to ED and patient denies any troubles breathing. Vitals remain stable. No reaction to FFP noted.
--- NOTE | 2021-05-08 03:34 | NUR.NOTE ---
Nursing Note: Patient remains easily arousable to verbal stimuli. No s/sx of adverse reaction noted. Patient reports improved swallowing when drinking. MD notified.
== END 2021-05-08 03:51 | disposition home or self-care (01) ==
LOC: ER 04:13
PROVIDERS: Emergency Provider Emergency Medicine; PCP Nurse Practitioner
DX: T78.3XXA Angioneurotic edema, initial encounter (principal)
CPT/HCPCS: 80053; 86850; 86900; 86901; 87635; 96361; 96374; 96375; 99284; 85025; 99283; J2930; P9059

== ENCOUNTER 2021-05-28 02:53 | Outpatient (CLI) | payer OTHER, SELFPAY ==
--- NOTE | 2021-05-28 09:00 | NS.NUTBLAN_ITS ---
Assessment: Ms. Torres present for nutritional counseling for hypertension nutrition therapy. She is 277 lbs which is c/w severe obesity. She describes her job as sedentary and she states she is not physically active when out of work. Dietary recall shows that Ms. Torres eats a fairly moderate diet with not many processed foods. She generally eats two meals and two snacks. Her main meals are chicken or fish with rice or potato and with a green vegetable. Her snacks are vegetables, nuts, some fruit, pretzels, or cheese and crackers. She does state that on Saturdays, she and her family are more likely to have a canned soup and a grilled cheese or something fast. She drinks mostly water or non- caloric drinks. Nutrition Diagnosis: Knowledge deficit regarding nutrition therapy for hypertension Intervention: Discussed with Ms. Torres that the gold standard for eating for high blood pressure is the DASH (Dietary Approaches to Stop Hypertension) eating plan. We talked about how some weight loss would also be beneficial to her blood pressure, however she may inadvertently lose weight as she adopts the DASH eating plan. Provided extensive written materials which we reviewed which included tips to get started, sample menus, recipes, lists of high potassium foods etc. She verbalized that she learns best from written materials and could already describe some changes she will make. Discussed action planning and that it is most beneficial to have one to two action plans at a time to make changes that are sustainable. In the next month, Ms. Torres will have snacks on fruits, vegetables, and nuts only. In the next month, Ms. Torres will make a homemade broth based vegetable based soup on Tuesday nights to replace the convenience of canned soups on the weekends. Ms. Torres states that she does know that she needs to increase her activity, however she is only in the contemplative state with this habit at this time. We will address physical activity again at her follow up visit. Monitoring and Evaluation: Ms. Torres will monitor her blood pressure, how her clothes feel, and her intake. We will evaluate her readiness to develop new action plans when she returns in June. Thank you for the referral.
== END 2021-05-28 02:54 | disposition home or self-care (01) ==
PROVIDERS: PCP Nurse Practitioner Family; Visit Provider Dietitian, Registered
DX: I11.0 Hypertensive heart disease with heart failure (principal); E66.8 Other obesity; Z71.3 Dietary counseling and surveillance
CPT/HCPCS: 97802

== ENCOUNTER → 2021-11-19 01:30 | Outpatient (CLI) | payer OTHER, SELFPAY | PROVIDERS: PCP Nurse Practitioner Family; Visit Provider Nurse Practitioner Family ==

== ENCOUNTER 2022-02-25 18:32 | Outpatient (REF) | payer OTHER, SELFPAY | END 2022-02-25 18:33 | disposition home or self-care (01) | LOC: LBN 18:32 | PROVIDERS: PCP Nurse Practitioner Family; Visit Provider Nurse Practitioner Family | DX: L98.9 Disorder of the skin and subcutaneous tissue, unspecified (principal) | CPT/HCPCS: 87070; 87205 ==

== ENCOUNTER 2022-06-24 02:57 | Outpatient (CLI) | payer OTHER, SELFPAY ==
[2022-06-24 12:31] LABS: ALT 81 U/L (14-59); AST 127 U/L (15-37); Albumin 3.8 g/dL (3.4-5.0); Alkaline Phosphatase 160 U/L (46-116); Anion Gap 9.8 mmol/L (3-11); BUN 9 mg/dL (7-18); Bilirubin, Total 0.7 mg/dL (0.2-1.0); CO2 28.2 mmol/L (21.0-32.0); CREATININE 0.8 mg/dL (0.55-1.02); Calculated LDL 200 mg/dL (<100); Chloride 100 mmol/L (98-107); Cholesterol 288 mg/dL (<200); Glucose 152 mg/dL (74-106); HDL Cholesterol 34 mg/dL (40-60); Potassium 3.3 mmol/L (3.5-5.1); Sodium 138 mmol/L (136-145); TSH (W/Ref FT4) 2.86 uIU/mL (0.36-3.74); Total Protein 8.5 g/dL (6.4-8.2); Triglyceride 271 mg/dL (<150)
[2022-06-24 22:39] LABS: FSH 6.6 mIU/mL (See Note)
[2022-06-24 22:42] LABS: LH 7.3 mIU/mL (See Note)
== END 2022-06-24 02:58 | disposition home or self-care (01) ==
LOC: LOS 02:57
PROVIDERS: PCP Nurse Practitioner Family; Visit Provider Nurse Practitioner Family
DX: K76.0 Fatty (change of) liver, not elsewhere classified (principal); N95.1 Menopausal and female climacteric states; E66.01 Morbid (severe) obesity due to excess calories; E78.5 Hyperlipidemia, unspecified
CPT/HCPCS: 36415; 80053; 80061; 83001; 83002; 84443

== ENCOUNTER 2022-10-07 08:18 | Emergency (ER) | payer OTHER, SELFPAY ==
[2022-10-07 08:21] VITALS: BP 156/106; PULSE 96; RESP 18; TEMP 36.6; O2SAT 97
--- NOTE | 2022-10-07 09:02 | ED.GENADUL_ITS ---
Discharge Plan Disposition Patient Disposition: Home Condition: Stable Discharge Details Clinical Impression: Pleuritic chest pain Primary Care Provider: Ishmael Mora ED Provider: Emile Santana Home Meds and New Rx's Prescriptions: Continued omeprazole 20 mg tablet,delayed release (DR/EC) 20 mg PO PRN PRN rosuvastatin 10 mg tablet 10 mg PO DAILY Qty: 90 3RF albuterol sulfate [ProAir HFA] 90 mcg/actuation HFA aerosol inhaler 2 puff Inhalation Q4H PRN Qty: 8.5 3RF metoprolol succinate 25 mg tablet extended release 24 hr 25 mg PO DAILY Qty: 90 3RF metformin 500 mg tablet 500 mg PO BID Qty: 180 3RF Rx Instructions: 1/2 tablet every AM for 7 days, 1/2 tab twice daily for 7 days, 1 tab in AM and 1/2 in PM x 7 days, then 1 tab twice daily then 1 1/2 tab twice daily, then 2 tabs twice daily. budesonide-formoterol [Symbicort] 80-4.5 mcg/actuation HFA aerosol inhaler 2 puff Inhalation BID Qty: 10.2 11RF losartan-hydrochlorothiazide 100-12.5 mg tablet 1 tab PO DAILY Qty: 90 3RF amlodipine 10 mg tablet 10 mg PO DAILY Qty: 90 4RF cetirizine [Zyrtec] 10 MG tablet 10 mg PO PRN Patient Comments: 09-20-17 pt reports that she is currently taking this med. hb 06-28-17 pt reports that she is no longer taking thi s med. hb Discharge Instructions Instructions: Chest Pain (ED), Costochondritis (ED) Additional Instructions: Please take ibuprofen over the counter. Take 600mg by mouth every 6 hours as needed for pain. Your magnesium level was slightly low today and liver function tests were elevated today. These have been elevated in the past. Please be sure to follow this up with your primary care physician. Please contact your primary care physician to arrange follow-up. Return to the ER immediately for any worsening or new concerning symptoms. Referrals: Ishmael Mora, CONTACT MANAGER [Primary Care Provider] - Medical Decision Making 905 -- 41-year-old female with history of diabetes, hypertension, hyperlipidemia, smoker, here with pleuritic left upper abdomen/lower anterior chest wall pain. Patient has focal tenderness that reproduces pain. Suspect costochondritis versus rib contusion or fracture versus less likely pulmonary embolism. Patient is low risk by Wells criteria. Plan to obtain D-dimer. Plan to obtain chest x-ray with rib series. 1130 -- Chest x-ray interpreted by radiology: 1. Unremarkable radiographic appearance of the left ribs. 2. No acute pulmonary findings. D-dimer is elevated. Plan to proceed with CT of the chest. 1200 --labs reviewed and mild hypomagnesemia noted. I will give Mag-Ox p.o. Patient does have mild transaminitis may be related to nonalcoholic fatty liver disease but I will have her follow-up with PCP. CT of the chest was interpreted by radiology: No acute process or significant findings noted. Suspect costochondritis. Plan for discharge with outpatient follow-up with PCP. Usual customary discharge instructions were reviewed. Lab Data Lab results reviewed: Yes I reviewed the patient's lab results. Labs: Laboratory Tests Range/Units 10/07/22 10/07/22 10/07/22 09:07 10:25 10:25 WBC (4.4-10.8) 10^3/uL 6.83 RBC (3.93-5.22) 10^6/uL 4.90 Hgb (11.2-15.7) g/dL 14.5 Hct (36.0-46.0) % 44.2 MCV (80-95) fL 90 MCH (27.0-33.0) pg 29.6 MCHC (32.0-36.0) % 32.8 RDW (11.7-14.6) % 14.5 Plt Count (130-400) 10^3/uL 161 MPV (8.0-11.0) fL 10.4 Immature Gran % 0.3 Neutrophils % 63.4 Lymphocytes % 26.4 Monocytes % 5.6 Eosinophils % 3.1 Basophils % 1.2 Nucleated RBC % (0.0-0.3) % 0.0 Absolute Neutrophils (1.2-6.7) 10^3/uL 4.34 Absolute Lymphocytes (1.2-3.4) 10^3/uL 1.80 Absolute Monocytes (0.1-0.8) 10^3/uL 0.38 Absolute Eosinophils (0.0-0.7) 10^3/uL 0.21 Absolute Basophils (0.0-0.2) 10^3/uL 0.08 D-Dimer (<500) ng/mlFEU 590 H Sodium (136-145) mmol/L 139 Potassium (3.5-5.1) mmol/L 3.8 Chloride (98-107) mmol/L 100 Carbon Dioxide (21.0-32.0) mmol/L 25.9 Anion Gap (3-11) mmol/L 13.1 H BUN (7-18) mg/dL 11 Creatinine (0.55-1.02) mg/dL 0.8 Est GFR (CKD-EPI 2020) (mL/min/1.73m2) 93.70 Glucose (74-106) mg/dL 101 Calcium (8.5-10.1) mg/dL 9.5 Magnesium (1.8-2.4) mg/dL 1.7 L Total Bilirubin (0.2-1.0) mg/dL 1.1 H AST (15-37) U/L 94 H ALT (14-59) U/L 72 H Alkaline Phosphatase (46-116) U/L 155 H Troponin I (<or=60) ng/L < 50 Total Protein (6.4-8.2) g/dL 8.5 H Albumin (3.4-5.0) g/dL 3.9 HPI General Date/Time Provider Initiated Documentation: 10/07/22 08:43 . Limitations to Documentation: no limitations . Information obtained by: patient . HPI Narrative: 41-year-old female with history of diabetes, hyperlipidemia, hypertension, GERD, smoker, here with chief complaint of left upper abdomen/left lower chest pain. Pain is described as a sharp sensation when she takes a deep breath. She also experiences the pain when she uses her muscles to stand. She states pain started this morning when she woke up. She is concerned that maybe she was sleepwalking last night and injured her side. She denies bruising. She does also note that she coughs hard intermittently. Related Data Home Medications Medication Instructions Recorded Confirmed cetirizine 10 mg tablet (Zyrtec) 10 mg PO PRN 11/04/13 10/07/22 omeprazole 20 mg tablet,delayed 20 mg PO PRN PRN 09/09/20 10/07/22 release budesonide-formoterol HFA 80 2 puff inhalation BID #10.2 grams 04/19/22 10/07/22 mcg-4.5 mcg/actuation aerosol inhaler (Symbicort) losartan 100 1 tab PO DAILY #90 tabs 07/07/22 10/07/22 mg-hydrochlorothiazide 12.5 mg tablet amlodipine 10 mg tablet 10 mg PO DAILY #90 tabs 07/16/22 10/07/22 albuterol sulfate 90 mcg/actuation 2 puff inhalation Q4H PRN #8.5 07/19/22 10/07/22 aerosol inhaler (ProAir HFA) grams metformin 500 mg tablet 500 mg PO BID #180 tabs 07/19/22 10/07/22 metoprolol succinate 25 mg 25 mg PO DAILY #90 tabs 07/19/22 10/07/22 tablet,extended release 24 hr rosuvastatin 10 mg tablet 10 mg PO DAILY #90 tabs 07/19/22 10/07/22 Previous Rx's Medication Instructions Recorded budesonide-formoterol HFA 80 2 puff inhalation BID #10.2 grams 04/19/22 mcg-4.5 mcg/actuation aerosol inhaler (Symbicort) losartan 100 1 tab PO DAILY #90 tabs 07/07/22 mg-hydrochlorothiazide 12.5 mg tablet amlodipine 10 mg tablet 10 mg PO DAILY #90 tabs 07/16/22 albuterol sulfate 90 mcg/actuation 2 puff inhalation Q4H PRN #8.5 07/19/22 aerosol inhaler (ProAir HFA) grams metformin 500 mg tablet 500 mg PO BID #180 tabs 07/19/22 metoprolol succinate 25 mg 25 mg PO DAILY #90 tabs 07/19/22 tablet,extended release 24 hr rosuvastatin 10 mg tablet 10 mg PO DAILY #90 tabs 07/19/22 Allergies Allergy/AdvReac Type Severity Reaction Status Date / Time amoxicillin trihydrate Allergy Mild hives Verified 10/07/22 08:26 [From Augmentin] potassium clavulanate Allergy Mild hives Verified 10/07/22 08:26 [From Augmentin] General Stated Complaint: Abd Prob JASMINE: 3 Review of Systems All systems reviewed & are unremarkable except as noted in HPI and below Constitutional Constitutional: Denies fever(s) Cardiovascular Cardiovascular: Reports as per HPI and Reports chest pain Gastrointestinal Gastrointestinal: Reports as per HPI, Denies nausea and Denies vomiting Musculoskeletal Musculoskeletal: Reports as per HPI PFSH All Active Problems Pleuritic chest pain (Acute) Diabetes mellitus (Chronic) Perimenopausal (Acute) Angioedema (Acute) Hyperlipidemia (Acute) Morbid obesity (Acute) HTN (hypertension) (Chronic) Asthma (Acute 08/21/12) Gastroesophageal reflux disease (Acute 08/21/12) omeprazole Non-alcoholic fatty liver disease (Acute 08/21/12) U/S 09/26 lfts wnl 2013 Seasonal allergic rhinitis (Acute) Rhinoconjunctivitis-seasonal Smoker (Acute 08/21/12) Surgical History History of bilateral ligation of fallopian tubes Ligation of fallopian tube Family History Mother No problems noted. Brother Mental disorder Depression Grandfather Personal history of malignant neoplasm Prostate Grandmother Personal history of malignant neoplasm Breast Maternal Aunt Personal history of malignant neoplasm Breast Social History Smoking/Tobacco Use Status: Current every day Tobacco Type: cigarettes Second Hand Exposure: Yes Smoking risk assessment performed?: Yes Alcohol Intake: current Alcohol Intake frequency: a few times a month Alcohol type: hard liquor Drug use: Never Substance use type: does not use Caregiver/Support person: No Household members: children Housing: apartment Communication Needs: None Do you need help understanding health information?: Never Pets and animals: Yes Pets and animals: cat(s) Sexually active: No Do you think of yourself as: straight/heterosexual Current gender identity: female What is your relationship status?: How often do you talk on the phone with friends or family?: three or more times per week How often do you get together with friends or relatives?: never Do you belong to any clubs or organized social groups?: no Panel score (0-1 are the most socially isolated patients): 1 What type of physical activity do you participate in: none Seatbelt use: always 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 Do you feel safe at home: Yes Do you feel safe in your relationship?: Yes Exam Const General: cooperative and no acute distress HENMT Mouth: moist mucous membranes Eyes Conjunctivae: normal conjunctivae Sclera: normal sclerae Neck Neck: trachea midline and supple Chest Chest: no crepitus and localized rib tenderness with anteroposterior compression (Right anterior lateral over rib #6) Resp Auscultation: clear to auscultation bilaterally, no rales, no rhonchi and no wheezes Cardio Rate: regular rate and not tachycardic Rhythm: regular rhythm Heart Sounds: no gallops, no murmurs and no rubs GI Palpation: soft, not firm, no guarding, no masses, not rigid and nontender Skin General skin exam: no rashes or lesions noted Neuro General: patient alert, patient awake and tone normal Extrem General: no calf tenderness and no edema Psych Appearance: grossly normal Mental Status: mental status grossly normal Course Vital Signs Vital signs: Vital Signs Temperature 36.6 C 10/07/22 08:21 Pulse 96 H 10/07/22 08:21 Respiratory Rate 18 10/07/22 08:21 Blood Pressure 156/106 H 10/07/22 08:21 Pulse Oximetry 97 10/07/22 08:21 Temperature 36.6 C 10/07/22 08:21 Temperature Source Oral 10/07/22 08:21 Pulse 96 H 10/07/22 08:21 Respiratory Rate 18 10/07/22 08:21 Respiratory Effort Normal, Non-Labored 10/07/22 08:25 Blood Pressure 156/106 H 10/07/22 08:21 Pulse Oximetry 97 10/07/22 08:21 Oxygen Delivery Method Room Air 10/07/22 08:21 Oxygen Flow Rate 0 10/07/22 08:21 PAWSS Have you Been Recently Intoxicated or Drunk Within the Last 30 days?: No Have you Ever Experienced Previous Episodes of Alcohol Withdrawal?: No Have you ever Experienced Withdrawal Seizures?: No Have you ever Experienced Delirium Tremens(DT)s?: No Have you ever undergone Alcohol Rehabilitation Treatment (i.e, inpt ot outpatient treatment programs)?: No Have you ever Experienced Blackouts?: No Have you ever Combined Alcohol with other Downers within the last 90 days?: No Positive Blood Alcohol level on Presentation? [PCS.BAL]: No Evidence of Increased Autonomic Activity (i.e. HR>120, tremor, sweating, agitation, nausea)?: No Result: 0
--- NOTE | 2022-10-07 09:40 | DI.RAD_ITS ---
Exam(s) XR RIBS LT W PA LAT CHEST CLINICAL HISTORY left chest pain. COMPARISON: CR,XR XR CHEST 2V PA LATERAL from 06/05/2019 TECHNIQUE:: PA and lateral views of the chest and 5 views of the left ribs were performed. FINDINGS: LUNGS: Clear. No pleural abnormality seen. HEART: Normal. MEDIASTINUM: Normal. BONES: No displaced rib fracture is seen. No compression fractures are seen in the thoracic spine. No bony destructive lesion is seen. OTHER FINDINGS: None. IMPRESSION: 1. Unremarkable radiographic appearance of the left ribs. 2. No acute pulmonary findings.
[2022-10-07 09:49] LABS: D-Dimer 590 ng/mlFEU (<500)
[2022-10-07 10:35] LABS: Abs Immature Grans 0.02 10^3/uL (0.0-0.06); Absolute Basophil Count 0.08 10^3/uL (0.0-0.2); Absolute Eosinophil Count 0.21 10^3/uL (0.0-0.7); Absolute Monocyte Count 0.38 10^3/uL (0.1-0.8); Absolute Neutrophil Count 4.34 10^3/uL (1.2-6.7); Basophils % 1.2; Eosinophils % 3.1; HCT 44.2 % (36.0-46.0); HGB 14.5 g/dL (11.2-15.7); Immature Grans % 0.3; Lymphocytes % 26.4; MCH 29.6 pg (27.0-33.0); MCHC 32.8 % (32.0-36.0); MCV 90 fL (80-95); MPV 10.4 fL (8.0-11.0); Monocytes % 5.6; Neutrophils % 63.4; Platelet Count 161 10^3/uL (130-400); RDW 14.5 % (11.7-14.6); RDW-SD 48.3 fL; WBC 6.83 10^3/uL (4.4-10.8)
[2022-10-07 10:58] LABS: ALT 72 U/L (14-59); AST 94 U/L (15-37); Albumin 3.9 g/dL (3.4-5.0); Alkaline Phosphatase 155 U/L (46-116); Anion Gap 13.1 mmol/L (3-11); BUN 11 mg/dL (7-18); Bilirubin, Total 1.1 mg/dL (0.2-1.0); CO2 25.9 mmol/L (21.0-32.0); CREATININE 0.8 mg/dL (0.55-1.02); Calcium 9.5 mg/dL (8.5-10.1); Chloride 100 mmol/L (98-107); Glucose 101 mg/dL (74-106); Magnesium 1.7 mg/dL (1.8-2.4); Potassium 3.8 mmol/L (3.5-5.1); Sodium 139 mmol/L (136-145); Total Protein 8.5 g/dL (6.4-8.2); Troponin I < 50 ng/L (<or=60)
[2022-10-07] MEDS: Omnipaque 350 MG/ML 500 ML BTL-Imaging package IJ (11:00)
[2022-10-07] MEDS: Normal Saline - Diluent 50 ML VIAL IJ (11:01)
--- NOTE | 2022-10-07 11:10 | DI.CT_ITS ---
Exam(s) CT CHEST PE CTA EXAM: CT CHEST PE CTA CLINICAL HISTORY: chest pain left. TECHNIQUE: Imaging Protocol: Axial CT angiography was performed with multi-slice acquisition and mu lti-planar reconstructions as well as axial, coronal and sagittal MIP reconstructions. CONTRAST MATERIAL: Intravenous: Omnipaque 350 Contrast volume:100 ml COMPARISON: CT CT CHEST PE CTA from 06/05/2019 CR XR RIBS LT W PA LAT CHEST from 10/07/2022 FINDINGS: The exam is limited by respiratory motion. Pulmonary Arteries: No evidence of filling defect to suggest pulmonary emboli. Tracheobronchial tree: Patent where visualized. Mediastinum and Emily: No dominant adenopathy or fluid collection. Pulmonary parenchyma: No consolidation or dominant measurable mass. Pleura: No effusion or pneumothorax. Heart: The heart is not dilated. No coronary artery calcifications are seen. Aorta: Thoracic aorta non-dilated. No aneurysm. No dissection. Upper abdomen: Enlarged fatty liver. Bones: Unremarkable for age. Tubes, Catheters, and Lines: None IMPRESSION: No evidence of pulmonary embolism. RADIATION DOSE DELIVERED: 620.11mGy.cm Total DLP DATA REPOSITORY: All CT scans at this facility are submitted to the National Radiology Data Registry (NRDR) Dose Index Registry (DIR) with the [employer] ([employer]). RADIATION OPTIMIZATION: All CT scans at this facility use at least one of these dose optimization te chniques: automated exposure control; mA and/or kV adjustment per patient size (includes targeted exa ms where dose is matched to clinical indication); or iterative reconstruction.
== END 2022-10-07 12:26 | disposition home or self-care (01) ==
PROVIDERS: Emergency Provider Student in an Organized Health Care Education/Training Program; PCP Nurse Practitioner Family
DX: R07.81 Pleurodynia (principal); E11.9 Type 2 diabetes mellitus without complications; I10 Essential (primary) hypertension; E78.5 Hyperlipidemia, unspecified; R79.89 Other specified abnormal findings of blood chemistry; J45.909 Unspecified asthma, uncomplicated; F17.210 Nicotine dependence, cigarettes, uncomplicated; Z79.84 Long term (current) use of oral hypoglycemic drugs
CPT/HCPCS: 36415; 71275; 80053; 99285; 71046; 71100; 83735; 84484; 85025; 85379; 99284

== ENCOUNTER 2023-01-28 02:32 | Outpatient (CLI) | payer OTHER, SELFPAY ==
[2023-01-28 15:59] LABS: Hemoglobin A1C 5.7 % (<5.7)
[2023-01-28 16:17] LABS: ALT 32 U/L (14-59); AST 25 U/L (15-37); Albumin 3.9 g/dL (3.4-5.0); Alkaline Phosphatase 131 U/L (46-116); Anion Gap 9.5 mmol/L (3-11); BUN 18 mg/dL (7-18); CO2 27.5 mmol/L (21.0-32.0); CREATININE 1.1 mg/dL (0.55-1.02); Calculated LDL 155 mg/dL (<100); Chloride 98 mmol/L (98-107); Cholesterol 217 mg/dL (<200); Estimated GFR 63.54 (mL/min/1.73m2); Glucose 106 mg/dL (74-106); HDL Cholesterol 37 mg/dL (40-60); Potassium 3.8 mmol/L (3.5-5.1); Sodium 135 mmol/L (136-145); Total Protein 8.3 g/dL (6.4-8.2); Triglyceride 126 mg/dL (<150)
== END 2023-01-28 02:33 | disposition home or self-care (01) ==
PROVIDERS: PCP Nurse Practitioner Family; Visit Provider Nurse Practitioner Family
DX: I10 Essential (primary) hypertension (principal); E78.5 Hyperlipidemia, unspecified; E11.9 Type 2 diabetes mellitus without complications
CPT/HCPCS: 36415; 80053; 80061; 83036

== ENCOUNTER 2024-02-21 04:52 | Outpatient (CLI) | payer OTHER, SELFPAY ==
[2024-02-21 17:32] LABS: CREATININE 0.9 mg/dL (0.55-1.02); Calculated LDL 129 mg/dL (<100); Cholesterol 202 mg/dL (<200); Estimated GFR 80.34 (mL/min/1.73m2); HDL Cholesterol 44 mg/dL (40-60); Triglyceride 146 mg/dL (<150)
== END 2024-02-21 04:53 | disposition home or self-care (01) ==
PROVIDERS: PCP Nurse Practitioner Family; Visit Provider Nurse Practitioner Family
DX: E78.5 Hyperlipidemia, unspecified (principal); I10 Essential (primary) hypertension
CPT/HCPCS: 36415; 80061; 82565

== ENCOUNTER 2024-08-17 16:56 | Outpatient (CLI) | payer OTHER, SELFPAY ==
[2024-08-21 18:06] LABS: Alternaria Tenuis IgE <0.10 kU/L (<0.70); Aspergillus Fumigatus IgE <0.10 kU/L (<0.70); Bermuda Grass IgE <0.10 kU/L (<0.70); Cat Epithelium IgE <0.10 kU/L (<0.70); Cladosporium IgE <0.10 kU/L (<0.70); Cocklebur IgE <0.10 kU/L (<0.70); Cockroach IgE <0.10 kU/L (<0.70); Cottonwood IgE <0.10 kU/L (<0.70); D Farinae IgE 0.17 kU/L (<0.70); D Pteronyssinus IgE 0.14 kU/L (<0.70); Dog Dander IgE <0.10 kU/L (<0.70); Eastern Sycamore IgE <0.10 kU/L (<0.70); Elm IgE <0.10 kU/L (<0.70); Fusarium moniliforme, IgE <0.10 kU/L (<0.70); Giant Ragweed IgE <0.10 kU/L (<0.70); Lamb's Quarter IgE <0.10 kU/L (<0.70); Oak IgE <0.10 kU/L (<0.70); Penicillium chrysogenum IgE <0.10 kU/L (<0.70); Red Sorrel IgE <0.10 kU/L (<0.70); Rough Pigweed IgE <0.10 kU/L (<0.70); Short Ragweed IgE <0.10 kU/L (<0.70); Silver Birch IgE <0.10 kU/L (<0.70); Stemphyllium IgE <0.10 kU/L (<0.70); Timothy Grass IgE <0.10 kU/L (<0.70); Walnut Tree IgE <0.10 kU/L (<0.70); Wormwood IgE <0.10 kU/L (<0.70)
[2024-08-21 18:21] LABS: Epicoccum purpurascens IgE <0.10 kU/L (<0.70)
[2024-08-27 11:52] LABS: CLASS 0; Cedar Red IgE <0.10 kU/L (<0.35); Rhodotorula IgE <0.35 kU/L (<0.35)
== END 2024-08-17 16:57 | disposition home or self-care (01) ==
PROVIDERS: PCP Nurse Practitioner Family; Visit Provider Physician Assistant
DX: J32.9 Chronic sinusitis, unspecified (principal); J33.9 Nasal polyp, unspecified; J31.0 Chronic rhinitis; J45.909 Unspecified asthma, uncomplicated
CPT/HCPCS: 36415; 86003

== ENCOUNTER 2024-12-27 08:01 | Outpatient (CLI) | payer OTHER, SELFPAY ==
[2024-12-27 07:43] LABS: Abs Immature Grans 0.02 10^3/uL (0.0-0.06); HCT 42.7 % (36.0-46.0); HGB 13.9 g/dL (11.2-15.7); Immature Grans % 0.3 %; MCH 28.5 pg (27.0-33.0); MCHC 32.6 % (32.0-36.0); MCV 88 fL (80-95); MPV 10.9 fL (8.0-11.0); Platelet Count 207 10^3/uL (130-400); RBC 4.87 10^6/uL (3.93-5.22); RDW 12.9 % (11.7-14.6); RDW-SD 41.9 fL; WBC 7.95 10^3/uL (4.4-10.8)
[2024-12-27 08:00] LABS: ESR 8 mm/hr (0-20)
[2024-12-27 08:03] LABS: INR 1.0 (0.9-1.1); PTT Activated 27.2 sec (20.6-30.2); Prothrombin Time 10.2 sec (9.1-11.1)
[2024-12-27 18:05] LABS: CRP, High Sensitivity 7.26 mg/L (See Note)
== END 2024-12-27 08:02 | disposition home or self-care (01) ==
LOC: LBO 08:01
PROVIDERS: PCP Nurse Practitioner Family; Visit Provider Physician Assistant
DX: R23.3 Spontaneous ecchymoses (principal)
CPT/HCPCS: 36415; 85652; 86141; 85025; 85610; 85730

== ENCOUNTER 2025-03-07 04:15 | Outpatient (CLI) | payer BC, SELFPAY ==
--- NOTE | 2025-03-07 08:11 | DI.MAMMO_ITS ---
Exam(s) MAMMO SCREENING EXAM: MAMMO SCREENING CLINICAL HISTORY: screening,z12.39 TECHNIQUE: Bilateral full field digital CC and MLO mammographic images were obtained with 3D tomosynthesis and utilizing computer aided detection (CAD). COMPARISON: Comparison is made with prior examinations. FINDINGS: Masses/Architectural Distortion: No suspicious masses or areas of architectural distortion are present. Nodule in the medial left breast is stable. Microcalcifications: No suspicious pleomorphic-type are seen. Skin Thickening/Nipple Retraction: None. IMPRESSION: 1. No significant interval change with no specific features of malignancy noted. 2. Unless there is more urgent need, screening mammography is recommended, as per [employer] guidelines. BI-RADS Category 2 - Benign Findings Breast Density - Category B - There are scattered areas of fibroglandular density. Breast density Category C or D implies that the patient has dense breast tissue. Dense breast tissue can make it harder to find cancer on a mammogram. Dense breast tissue is also associated with an increased risk of breast cancer. This information about the result of the mammogram report was provided to the patient to raise their awareness. Use this report when you speak with the patient about their risks for breast cancer, which includes their family history. At that time, you may recommend additional screening tests (Ultrasound or MRI) as these tests may add significant information. A negative radiographic report should not delay biopsy if a dominant or clinically suspicious mass is present. Up to ten percent of cancers are not identified on mammography. A negative report may reinforce clinical impression. Adenosis and dense breasts may obscure an underlying neoplasm. False positive reports average 6 to 10%. Patient will receive a letter notifying them of these results.
== END 2025-03-07 04:35 ==
LOC: DI 04:15
PROVIDERS: PCP Nurse Practitioner Family; Visit Provider Nurse Practitioner Family
DX: Z12.31 Encounter for screening mammogram for malignant neoplasm of breast (principal)
CPT/HCPCS: 77063; 77067

== ENCOUNTER 2025-04-01 08:37 | Outpatient (REF) | payer BC, SELFPAY ==
--- NOTE | 2025-04-01 08:15 | PAPFT_PTH ---
PATIENT: Frannie Torres LOC: [facility]#:[id number] AGE/SX: 44/F ROOM: RE04/01/[address]: Camille Urban NP : 1980 BED: DIS: 04/01/2025 SPEC #: [id number] RECD: 04/01/25 11:57 STATUS: MARSHALL RERachael #: [id number] SHARON: 04/01/25 08:[address]: Camille Urban NP DEPT: PENDING SALE TO [facility] Cytology RECD BY: Lamar Gruber ENTERED: 04/01/25 11:58 SP TYPE: PAPFT OTHR DR: Ishmael Mora NP Tissues: 1 - CX/ENDOCX FOR PAP SMEARS Procedures: PAP THIN PREP/[facility] Screening HPV DNA PROBE Comments: [id number] (HPV 16 & 18/45)
== END 2025-04-01 08:38 | disposition home or self-care (01) ==
LOC: LBN 08:37
PROVIDERS: PCP Nurse Practitioner Family; Visit Provider Nurse Practitioner Women's Health
DX: Z12.4 Encounter for screening for malignant neoplasm of cervix (principal)
CPT/HCPCS: 88142; 87624